=== PATIENT | female | born 1965 | race Caucasian/White ===

== ENCOUNTER → 2019-02-18 07:57 | Outpatient (CLI) | payer OTHER, SELFPAY ==
[2019-02-18 09:34] LABS: Alanine Aminotransferase 37 IU/L (9-52); Albumin Globulin Ratio 1.4 (1.0-2.8); Alkaline Phosphatase 73 U/L (38-126); Aspartate Aminotransferase 28 IU/L (14-36); Bilirubin Total 0.4 mg/dL (0.2-1.3); Bilirubin Unconjugated 0.2 mg/dL (0.0-1.1); Cholesterol 262 mg/dL (140-199); Globulin 2.9 g/dL (1.7-4.1); HDL Cholesterol 40 mg/dL (40-60); HEMOLYSIS < 15 (0-50); Total Protein 6.9 g/dL (6.3-8.2); Triglycerides 436 mg/dL (35-150)
[2019-02-18 09:49] LABS: Vitamin D 25 Hydroxy (D3) 34.5 ng/mL (30.0-100.0)
== END ==
PROVIDERS: PCP Student in an Organized Health Care Education/Training Program; Visit Provider Student in an Organized Health Care Education/Training Program
DX: E55.9 Vitamin D deficiency, unspecified (principal); Z13.220 Encounter for screening for lipoid disorders; Z91.89 Other specified personal risk factors, not elsewhere classified
CPT/HCPCS: 36415; 80061; 80076; 82306

== ENCOUNTER → 2019-07-11 10:14 | Outpatient (CLI) | payer OTHER, SELFPAY ==
[2019-07-13 14:48] LABS: Mitogen-NIL > 10.00 IU/mL; QuantiFERON TB NEGATIVE (Negative); TB1-NIL < 0.01 IU/mL; TB2-NIL < 0.01 IU/mL
== END ==
PROVIDERS: PCP Student in an Organized Health Care Education/Training Program; Visit Provider Family Medicine
DX: Z11.1 Encounter for screening for respiratory tuberculosis (principal)
CPT/HCPCS: 36415; 86480

== ENCOUNTER 2020-08-06 13:13 | Emergency (ER) | payer OTHER, SELFPAY ==
[2020-08-06 13:29] VITALS: BP 144/75; PULSE 63; RESP 14; TEMP 36.7; O2SAT 100; BMI 25.4
[2020-08-06 14:00] LABS: Prothrombin Time 11.9 SECONDS (10.1-12.7)
[2020-08-06 14:03] LABS: Add Manual Diff / Slide Review NO; Basophils Absolute Auto 0 /uL (0-100); Basophils Percent Auto 0.6 % (0-2); Eosinophils Absolute Auto 100 /uL (0-450); Eosinophils Percent Auto 1.5 % (2-4); Hematocrit 39.1 % (36-46); Hemoglobin 13.1 g/dL (12.0-16.0); Lymphocytes Absolute Auto 2100 /uL (1100-4500); Lymphocytes Percent Auto 40.6 % (25-40); Mean Corpuscular HGB Conc 33.4 % (30-36); Mean Corpuscular Hemoglobin 29.2 PG (26-34); Mean Corpuscular Volume 87.2 fL (80-100); Monocytes Absolute Auto 300 /uL (0-900); Monocytes Percent Auto 6.3 % (3-14); Neutrophils Absolute Auto 2700 /uL (1500-7000); PTT Partial Thromboplastin Tim 36 SECONDS (26.4-36.2); Platelet Count 248 X10^3/uL (150-400); Red Blood Cell Count 4.48 X10^6/uL (4.0-5.2); Red Cell Distribution Width 14.3 % (11.6-14.8); White Blood Cell Count 5.2 X10^3/uL (4.5-11.0)
[2020-08-06 14:09] LABS: Alanine Aminotransferase 20 IU/L (<35); Albumin 4.2 g/dL (3.5-5.0); Albumin Globulin Ratio 1.4 (1.0-2.8); Alkaline Phosphatase 56 U/L (38-126); Aspartate Aminotransferase 26 IU/L (14-36); BUN Creatinine Ratio 25.4 (6-22); Bilirubin Total 0.4 mg/dL (0.2-1.3); Blood Urea Nitrogen 15 mg/dL (7-17); Carbon Dioxide 30 mmol/L (22-32); Chloride 104 mmol/L (98-107); Estimated Glomerular Filt Rate > 60.0 mL/min (>60); Globulin 3.1 g/dL (1.7-4.1); Glucose 105 mg/dL (70-100); HEMOLYSIS < 15 (0-50); Lipase 130 U/L (23-300); Potassium 3.7 mmol/L (3.4-5.1); Sodium 138 mmol/L (137-145); Total Protein 7.3 g/dL (6.3-8.2)
[2020-08-06 17:37] VITALS: BP 161/82; PULSE 55; RESP 16; O2SAT 100
[2020-08-06 18:01] LABS: Bacteria Urine None Seen; RBC Urine None Seen (0-5/HPF); WBC Urine None Seen (0-5/HPF)
[2020-08-06 18:25] LABS: Amorphous Sediment Urine 2+; Culture Indicated Urine Cult Not Indicated
--- NOTE | 2020-08-06 18:49 | ED_ITS ---
HPI - Abdominal Pain General Chief Complaint: Abdominal Pain Stated Complaint: left side sharp pains last night Time Seen by Provider: 08/06/20 17:23 Source: patient Mode of arrival: Ambulatory Limitations: no limitations History of Present Illness HPI narrative: 54-year-old female nonsmoker with history of hyperlipidemia presents with a chief complaint of some sharp left side pain off and on for the past few weeks. She states there is no obvious provocation or palliation of her symptoms and it seems to be in the same pinpoint spot on her left side and lower ribs. She states that when the episodes are present they last a few seconds and then are gone for undetermined amount of time. She denies associated symptoms such as chest pain or shortness of breath. She has had no nausea, vomiting or diarrhea though she has had some constipation. She denies any change in medications or diet. She denies any overuse or injuries. MD complaint: flank pain Onset (ago): week(s) Pain Consistency: intermittent and now resolved Location: L flank Severity: mild Quality: cramping and stabbing Relieving factors: nothing Exacerbating factors: nothing Associated symptoms: denies other symptoms Related Data Home Medications Medication Instructions Recorded Confirmed coenzyme [id number] 100 mg-100 cap PO cap 06/04/18 06/04/18 unit capsule Previous Rx's Medication Instructions Recorded aspirin 81 mg tablet,delayed 81 mg PO DAILY #30 tab 06/04/18 release lovastatin 20 mg tablet 20 mg PO QPM #30 tab 02/18/19 Allergies Allergy/AdvReac Type Severity Reaction Status Date / Time No Known Drug Allergies Allergy Verified 08/06/20 13:29 Review of Systems Constitutional Constitutional: Denies chills, Denies fatigue, Denies fever(s), Denies frequent falls, Denies lethargy and Denies weakness Eyes Eyes: Denies change in vision, Denies eye discharge, Denies irritation and Denies loss of vision ENT Ears, Nose, Mouth, and Throat: Denies change in voice, Denies dizziness, Denies neck pain, Denies sore throat and Denies throat swelling Cardiovascular Cardiovascular: Denies chest pain, Denies irregular heart rhythm, Denies lightheadedness, Denies palpitations, Denies dyspnea, Denies dyspnea on exertion and Denies orthopnea Respiratory Respiratory: Denies cough, Denies dyspnea, Denies dyspnea on exertion and Denies wheezing Gastrointestinal Gastrointestinal: Denies abdominal pain, Denies change in bowel habits, Reports constipation, Denies diarrhea, Denies nausea and Denies vomiting Musculoskeletal Musculoskeletal: Denies neck pain and Denies numbness Integumentary/Breasts Skin/Breast: Denies pruritus, Denies erythema, Denies rash and Denies wounds Neurologic Neurologic: Denies behavioral changes, Denies confusion, Denies dizziness, Denies frequent falls, Denies loss of vision, Denies numbness and Denies weakness Psychiatric Psychiatric: Denies anxiety, Denies behavioral changes, Denies confusion, Denies depression, Denies homicidal ideation and Denies suicidal ideation Endocrine Endocrine: Denies fatigue, Denies flushing and Denies palpitations Hematologic/Lymphatic Hematologic/Lymphatic: Denies easy bruising Allergic/Immunologic Allergic/Immunologic: Denies urticaria, Denies throat swelling and Denies wheezing Patient History Surgical History (Updated 07/05/18 @ 14:37 by Kecia Avilez) Anesthesia History of section (2001) History of section (2003) Family History (Updated 07/05/18 @ 14:35 by eKcia Avilez) Mother Heart attack Stroke Brother S/P CABG (coronary artery bypass graft) Heart disease Social History Smoking Status: Never smoker alcohol intake: never substance use type: does not use Smoking Status: Never smoker alcohol intake frequency: holidays/special occasions only Substance Use Type: does not use Exam Narrative Exam Narrative: GENERAL: [54] year old patient appears stated age. Well- nourished, well-developed patient, in mild distress. HEAD: Atraumatic. Normocephalic. EYES: Pupils equal round and reactive. Extraocular motions intact. No scleral icterus. No injection or drainage. ENT: Nose without bleeding, purulent drainage. Throat without erythema, tonsi llar hypertrophy or exudate. Airway patent. NECK: Trachea midline. Non tender CARDIOVASCULAR: Regular rate and rhythm without murmurs, gallops, or rubs. RESPIRATORY: Clear to auscultation. Breath sounds equal bilaterally. No wheezes, rales, or rhonchi. GASTROINTESTINAL: Abdomen soft, non-tender, nondistended. EXTREMITIES: No edema or joint tenderness. BACK: Nontender without deformity or crepitance. No flank tenderness. NEURO: AOx3. SKIN: No rash or erythema of visible areas Initial Vital Signs Initial Vital Signs: Vital Signs Temperature 98.0 F 08/06/20 13:29 Pulse Rate 63 08/06/20 13:29 Respiratory Rate 14 08/06/20 13:29 Blood Pressure 144/75 H 08/06/20 13:29 Pulse Oximetry 100 08/06/20 13:29 Course Orders Ordered: ED Orders 08/06/20 17:30 Urine Microscopic Stat Vital Signs Vital signs: Vital Signs - 8 hr 08/06/20 17:37 08/06/20 19:06 08/06/20 19:10 Pulse Rate 55 L 68 68 Respiratory Rate 16 14 14 Blood Pressure 161/82 H 182/79 H 182/79 H Pulse Oximetry 100 98 98 MDM - Abdominal Pain Lab Data Result diagrams: 08/06/20 13:41 08/06/20 13:41 Labs: Lab Results 08/06/20 08/06/20 08/06/20 Range/Units 13:41 13:41 13:41 WBC 5.2 (4.5-11.0) X10^3/uL RBC 4.48 (4.0-5.2) X10^6/uL Hgb 13.1 (12.0-16.0) g/dL Hct 39.1 (36-46) % MCV 87.2 (80-100) fL MCH 29.2 (26-34) PG MCHC 33.4 (30-36) % RDW 14.3 (11.6-14.8) % Plt Count 248 (150-400) X10^3/uL Neut % (Auto) 51.0 (50-75) % Lymph % (Auto) 40.6 H (25-40) % [place] % (Auto) 6.3 (3-14) % Eos % (Auto) 1.5 L (2-4) % Baso % (Auto) 0.6 (0-2) % Neut # (Auto) 2700 (4176-5494) /uL Lymph # (Auto) 2100 (5240-0723) /uL [place] # (Auto) 300 (0-900) /uL Eos # (Auto) 100 (0-450) /uL Baso # (Auto) 0 (0-100) /uL PT 11.9 (10.1-12.7) SECONDS INR 1.0 (0.9-1.3) APTT 36 (26.4-36.2) SECONDS Sodium 138 (137-145) mmol/L Potassium 3.7 (3.4-5.1) mmol/L Chloride 104 (98-107) mmol/L Carbon Dioxide 30 (22-32) mmol/L BUN 15 (7-17) mg/dL Creatinine 0.59 (0.52-1.04) mg/dL Estimated GFR > 60.0 (>60) mL/min BUN/Creatinine Ratio 25.4 H (6-22) Glucose 105 H (70-100) mg/dL Calcium 9.0 (8.4-10.2) mg/dL Total Bilirubin 0.4 (0.2-1.3) mg/dL AST 26 (14-36) IU/L ALT 20 (<35) IU/L Alkaline Phosphatase 56 (38-126) U/L Total Protein 7.3 (6.3-8.2) g/dL Albumin 4.2 (3.5-5.0) g/dL Globulin 3.1 (1.7-4.1) g/dL Albumin/Globulin Ratio 1.4 (1.0-2.8) Lipase 130 (23-300) U/L Urine RBC (0-5/HPF) Urine WBC (0-5/HPF) Amorphous Sediment Urine Bacteria (None) Ur Culture Indicated? 08/06/20 Range/Units 17:30 WBC (4.5-11.0) X10^3/uL RBC (4.0-5.2) X10^6/uL Hgb (12.0-16.0) g/dL Hct (36-46) % MCV (80-100) fL MCH (26-34) PG MCHC (30-36) % RDW (11.6-14.8) % Plt Count (150-400) X10^3/uL Neut % (Auto) (50-75) % Lymph % (Auto) (25-40) % [place] % (Auto) (3-14) % Eos % (Auto) (2-4) % Baso % (Auto) (0-2) % Neut # (Auto) (4339-1461) /uL Lymph # (Auto) (7207-8765) /uL [place] # (Auto) (0-900) /uL Eos # (Auto) (0-450) /uL Baso # (Auto) (0-100) /uL PT (10.1-12.7) SECONDS INR (0.9-1.3) APTT (26.4-36.2) SECONDS Sodium (137-145) mmol/L Potassium (3.4-5.1) mmol/L Chloride (98-107) mmol/L Carbon Dioxide (22-32) mmol/L BUN (7-17) mg/dL Creatinine (0.52-1.04) mg/dL Estimated GFR (>60) mL/min BUN/Creatinine Ratio (6-22) Glucose (70-100) mg/dL Calcium (8.4-10.2) mg/dL Total Bilirubin (0.2-1.3) mg/dL AST (14-36) IU/L ALT (<35) IU/L Alkaline Phosphatase (38-126) U/L Total Protein (6.3-8.2) g/dL Albumin (3.5-5.0) g/dL Globulin (1.7-4.1) g/dL Albumin/Globulin Ratio (1.0-2.8) Lipase (23-300) U/L Urine RBC None seen (0-5/HPF) Urine WBC None seen (0-5/HPF) Amorphous Sediment 2+ Urine Bacteria None seen (None) Ur Culture Indicated? Cult not indicated Point of care testing: Urine Dip Bedside Urine Glucose Negative Bedside Urine Bilirubin - Negative Bedside Urine Ketone - Negative Urine Specific [place] 1.010 Bedside Urine Occult Blood +/- Bedside Urine pH 6 Bedside Urine Protein - Negative Bedside Urine Urobilinogen - Negative Bedside Urine Nitrite - Negative Bedside Urine Leukocytes - Negative Esterase MDM Narrative Medical decision making narrative: Multiple etiologies for patient's symptoms considered including: [Left flank pain secondary to kidney stone vs. pyelonephritis vs. colicky pain from constipation] Patient's symptoms improved over duration of stay with above-stated therapies. Strongly recommended Acute Abdominal Series but patient refused. Findings and discharge diagnosis discussed with patient/family followed by verbalization of understanding Return precautions discussed with patient/family whom verbalize understanding. Discharge Plan Departure Patient Disposition: Home Clinical Impression: Acute flank pain Instructions: DI for Flank Pain Activity Restrictions/Additional Instructions: *You have been diagnosed with [ left flank pain. Your labs, exam, and EKG are very reassuring. ] *What to do: *Continue to take medications as directed *Follow up with your primary care provider in 2-3 days, call for an appointment. Let them know you were seen in the Emergency Department and that we ask that you be seen in follow up *Return to ER if you should have any new, worsening or concerning symptoms, such as [more persistent pain, shortness of breath, fever greater than 101, nausea, vomiting or other bothersome symptoms] Prescriptions: No Action coenzyme [id number] E 100-100 mg-unit capsule PO RF: 0 aspirin 81 mg tablet,delayed release (DR/EC) 81 mg PO DAILY Qty: 30 RF: 11 lovastatin 20 mg tablet 20 mg PO QPM Qty: 30 RF: 2 Referrals: Kd Flynn MD [Primary Care Provider] -
[2020-08-06 19:06] VITALS: BP 182/79; PULSE 68; RESP 14; O2SAT 98
[2020-08-06 19:10] VITALS: BP 182/79; PULSE 68; RESP 14; O2SAT 98
== END 2020-08-06 19:12 | disposition home or self-care (01) ==
PROVIDERS: Emergency Medicine; Emergency Provider Emergency Medicine; PCP Student in an Organized Health Care Education/Training Program
DX: R10.9 Unspecified abdominal pain (principal); E78.5 Hyperlipidemia, unspecified
CPT/HCPCS: 36415; 80053; 81003; 81015; 83690; 85025; 85610; 85730; 93005; 99283; 99284

== ENCOUNTER 2020-12-02 20:32 | Emergency (ER) | payer OTHER, SELFPAY ==
[2020-12-02 20:38] VITALS: BP 178/85; PULSE 79; RESP 21; TEMP 36.5; O2SAT 97; BMI 26.2
[2020-12-02] MEDS: ONDANSETRON 4 MG/2 ML INJ IV (20:44)
[2020-12-02] MEDS: SODIUM CHLORIDE 0.9% 1,000 ML 1000 ML IV (20:45)
--- NOTE | 2020-12-02 20:53 | ED.CHESTPAIN ---
HPI - Chest Pain General Chief Complaint: Chest Pain Stated Complaint: chest pain Time Seen by Provider: 12/02/20 20:40 Source: patient Mode of arrival: Wheelchair Limitations: no limitations History of Present Illness HPI narrative: 55-year-old woman with history of hypertension hyperlipidemia presents after awaking this morning with severe dizziness. She had some retching vomited a few times in the morning was feeling better mid day went to work and then went to have a scheduled massaged and when she laid supine had recurrent episodes of significant vertigo with severe vomiting and nausea. She states that she had a similar episode around 2014, does not describe it as quite so severe. She has not had any recent falls or head trauma, complains of no fever, cough, chills, headaches, diarrhea, abdominal pain, weakness or numbness in her extremities. She does describe hyperventilating with the vomiting episodes this afternoon and experiencing some carpal pedal spasm Related Data Previous Rx's Medication Instructions Recorded lorazepam 0.5 mg PO TID PRN #14 tab 12/02/20 meclizine 25 mg PO TID PRN #30 tab 12/02/20 ondansetron 4 mg PO Q8H PRN #14 tab 12/02/20 Allergies Allergy/AdvReac Type Severity Reaction Status Date / Time No Known Drug Allergies Allergy Verified 12/02/20 20:44 Review of Systems Review of Systems Narrative: Remainder of review of systems including constitutional, ENT, cardiovascular, respiratory, GI, , musculoskeletal, skin, neurologic and psychiatric systems reviewed and are unremarkable except as noted in HPI. Patient History Social History Smoking Status: Unknown if ever smoked Smoking Status: Unknown if ever smoked alcohol intake frequency: holidays/special occasions only Substance Use Type: does not use Exam Narrative Exam Narrative: General: Healthy appearing, retching violently Able to give a complete and coherent history. HEENT: Moist mucous membranes, normal sclera with reactive pupils, Neck: No JVD, supple Respiratory: Lungs are clear to auscultation, no wheezing no rales no rhonchi. Full and symmetrical air movement Cardiac: Regular rate and rhythm no murmurs no bruits Abdomen: Soft, nontender, good bowel tones, no flank pain Skin: Warm and dry, no rashes Neurologic: Grossly neurologically intact with no obvious asymmetries. With evoked maneuvers she does have nystagmus when turning her head rapidly to the right with recurrent severe vertigo and dizziness. Extremities: No trauma, well perfused Psych: Cooperative, appropriate insight and affect Initial Vital Signs Initial Vital Signs: Vital Signs Temperature 97.7 F 12/02/20 20:38 Pulse Rate 79 12/02/20 20:38 Respiratory Rate 21 12/02/20 20:38 Blood Pressure 178/85 H 12/02/20 20:38 Pulse Oximetry 97 12/02/20 20:38 Course Orders Ordered: ED Orders 12/02/20 20:44 Complete Blood Count AUTO DIFF Stat Comprehensive Metabolic Panel Stat Troponin I Stat 12/02/20 20:46 EKG-12 Lead Stat Discontinued Medications Sodium Chloride (Normal Saline 0.9%) 1,000 mls @ 1,000 mls/hr IV BOLUS ONE Stop: 12/02/20 21:41 Last Infusion: 12/02/20 21:53 Dose: 0 mls/hr Documented by: Admin: 12/02/20 20:45 Dose: 1,000 mls/hr Documented by: JUAN RAMON Lorazepam (Lorazepam 2 Mg/Ml Inj) 1 mg IV NOW ONE Stop: 12/02/20 21:04 Last Admin: 12/02/20 21:11 Dose: 1 mg Documented by: LUIS Meclizine HCl (Meclizine Hcl 12.5 Mg Tablet) 25 mg PO NOW ONE Stop: 12/02/20 21:04 Last Admin: 12/02/20 21:11 Dose: 25 mg Documented by: LUIS Ondansetron HCl (Ondansetron 4 Mg/2 Ml Inj) 4 mg IV NOW ONE Stop: 12/02/20 20:42 Last Admin: 12/02/20 20:44 Dose: 4 mg Documented by: JUAN RAMON Vital Signs Vital signs: Vital Signs - 8 hr 12/02/20 20:38 12/02/20 21:32 12/02/20 21:56 Temperature 97.7 F Pulse Rate 79 74 76 Respiratory Rate 21 18 16 Blood Pressure 178/85 H 140/63 132/63 Pulse Oximetry 97 95 97 12/02/20 22:00 12/02/20 22:51 12/02/20 23:24 Temperature 98.5 F Pulse Rate 77 79 79 Respiratory Rate 19 15 15 Blood Pressure 128/65 129/63 117/64 Pulse Oximetry 95 96 96 MDM - Chest Pain Medical Records Data Attestation: I reviewed the patient's medical records. Lab Data Attestation: I reviewed the patient's lab results. Result diagrams: 12/02/20 20:44 12/02/20 20:44 Labs: Lab Results 12/02/20 12/02/20 Range/Units 20:44 20:44 WBC 9.8 (4.5-11.0) X10^3/uL RBC 4.69 (4.0-5.2) X10^6/uL Hgb 13.5 (12.0-16.0) g/dL Hct 40.6 (36-46) % MCV 86.6 (80-100) fL MCH 28.7 (26-34) PG MCHC 33.2 (30-36) % RDW 14.5 (11.6-14.8) % Plt Count 257 (150-400) X10^3/uL Neut % (Auto) 61.5 (50-75) % Lymph % (Auto) 32.0 (25-40) % [place] % (Auto) 4.2 (3-14) % Eos % (Auto) 0.6 L (2-4) % Baso % (Auto) 1.7 (0-2) % Neut # (Auto) 6000 (4688-1473) /uL Lymph # (Auto) 3100 (5745-4220) /uL [place] # (Auto) 400 (0-900) /uL Eos # (Auto) 100 (0-450) /uL Baso # (Auto) 200 H (0-100) /uL Sodium 138 (137-145) mmol/L Potassium 3.2 L (3.4-5.1) mmol/L Chloride 106 (98-107) mmol/L Carbon Dioxide 19 L (22-32) mmol/L BUN 12 (7-17) mg/dL Creatinine 0.59 (0.52-1.04) mg/dL Estimated GFR > 60.0 (>60) mL/min BUN/Creatinine Ratio 20.3 (6-22) Glucose 131 H (70-100) mg/dL Calcium 9.6 (8.4-10.2) mg/dL Total Bilirubin 0.5 (0.2-1.3) mg/dL AST 30 (14-36) IU/L ALT 24 (<35) IU/L Alkaline Phosphatase 73 (38-126) U/L Troponin I < 0.012 (0.01-0.034) ng/mL Total Protein 7.8 (6.3-8.2) g/dL Albumin 4.5 (3.5-5.0) g/dL Globulin 3.3 (1.7-4.1) g/dL Albumin/Globulin Ratio 1.4 (1.0-2.8) ECG Data Attestation: I personally reviewed and interpreted this ECG as follows: Interpretation: Sinus rhythm at a rate of 69 Incomplete right bundle-branch block No acute ST T wave changes MDM Narrative Medical decision making narrative: 55-year-old woman with benign positional vertigo starting this morning persistent vomiting with mild hypokalemia secondary to that. With Zofran, meclizine, Ativan and fluids she is feeling significantly improved. No evidence of stroke, sepsis, acute coronary syndrome. At this time she is safe for home discharge Discharge Plan Departure Patient Disposition: Home Clinical Impression: Benign paroxysmal positional vertigo Qualifiers: Laterality: right Qualified Code(s): H81.11 - Benign paroxysmal vertigo, right ear Instructions: DI for Benign Paroxysmal Positional Vertigo Activity Restrictions/Additional Instructions: Thank you for coming in today I am glad you are feeling better. Your blood work today was very reassuring with no signs of acute infection, heart attack or stroke. Your given a combination of 3 medications to help with her symptoms today. I am going to give you prescriptions for each of these and you can decide which seems the most helpful with your symptoms. It is okay to combined them. Ondansetron/Zofran, this is a specific anti nausea medicine Meclizine, this is for vertigo/spinning feeling. Can give you a slight dry mouth and cause some mild constipation. Ativan/lorazepam. This is actually an anti anxiety medication however it can be helpful in controlling nausea. You may find that this is helpful in getting to sleep over the next couple of nights if your still feeling dizzy when you laid down. If you find that you are getting worse, please feel free to return to the emergency department Prescriptions: New ondansetron 4 mg tablet,disintegrating 4 mg PO Q8H PRN (Reason: nausea and vomiting) Qty: 14 RF: 0 meclizine 25 mg tablet 25 mg PO TID PRN (Reason: dizziness) Qty: 30 RF: 0 lorazepam 0.5 mg tablet 0.5 mg PO TID PRN (Reason: vertigo, nausea) Qty: 14 RF: 0
[2020-12-02] MEDS: MECLIZINE HCL 12.5 MG TABLET 25 MG PO (21:11)
[2020-12-02] MEDS: LORazepam 2 MG/ML INJ 1 MG IV (21:11)
[2020-12-02 21:12] LABS: Add Manual Diff / Slide Review NO; Basophils Absolute Auto 200 /uL (0-100); Basophils Percent Auto 1.7 % (0-2); Eosinophils Absolute Auto 100 /uL (0-450); Eosinophils Percent Auto 0.6 % (2-4); Hematocrit 40.6 % (36-46); Hemoglobin 13.5 g/dL (12.0-16.0); Lymphocytes Absolute Auto 3100 /uL (1100-4500); Mean Corpuscular HGB Conc 33.2 % (30-36); Mean Corpuscular Hemoglobin 28.7 PG (26-34); Mean Corpuscular Volume 86.6 fL (80-100); Monocytes Absolute Auto 400 /uL (0-900); Monocytes Percent Auto 4.2 % (3-14); Neutrophils Absolute Auto 6000 /uL (1500-7000); Neutrophils Percent Auto 61.5 % (50-75); Platelet Count 257 X10^3/uL (150-400); Red Blood Cell Count 4.69 X10^6/uL (4.0-5.2); Red Cell Distribution Width 14.5 % (11.6-14.8); White Blood Cell Count 9.8 X10^3/uL (4.5-11.0)
[2020-12-02 21:17] LABS: Alanine Aminotransferase 24 IU/L (<35); Albumin 4.5 g/dL (3.5-5.0); Albumin Globulin Ratio 1.4 (1.0-2.8); Alkaline Phosphatase 73 U/L (38-126); Aspartate Aminotransferase 30 IU/L (14-36); BUN Creatinine Ratio 20.3 (6-22); Bilirubin Total 0.5 mg/dL (0.2-1.3); Blood Urea Nitrogen 12 mg/dL (7-17); Calcium 9.6 mg/dL (8.4-10.2); Carbon Dioxide 19 mmol/L (22-32); Chloride 106 mmol/L (98-107); Estimated Glomerular Filt Rate > 60.0 mL/min (>60); Globulin 3.3 g/dL (1.7-4.1); Glucose 131 mg/dL (70-100); HEMOLYSIS 19 (0-50); Potassium 3.2 mmol/L (3.4-5.1); Sodium 138 mmol/L (137-145); Total Protein 7.8 g/dL (6.3-8.2)
[2020-12-02 21:28] LABS: Troponin I < 0.012 ng/mL (0.01-0.034)
[2020-12-02 21:32] VITALS: BP 140/63; PULSE 74; RESP 18; O2SAT 95
[2020-12-02 21:56] VITALS: BP 132/63; PULSE 76; RESP 16; O2SAT 97
[2020-12-02 22:00] VITALS: BP 128/65; PULSE 77; RESP 19; O2SAT 95
--- NOTE | 2020-12-02 22:04 | PC.NURSE ---
Pt reports feeling better, no vomiting after medication, vertigo resolved, pt is drowsy. at bedside.
[2020-12-02 22:51] VITALS: BP 129/63; PULSE 79; RESP 15; O2SAT 96
[2020-12-02 23:24] VITALS: BP 117/64; PULSE 79; RESP 15; TEMP 36.9; O2SAT 96
== END 2020-12-02 23:25 | disposition home or self-care (01) ==
PROVIDERS: Emergency Provider Emergency Medicine
DX: H81.11 Benign paroxysmal vertigo, right ear (principal); R11.2 Nausea with vomiting, unspecified; E87.6 Hypokalemia
CPT/HCPCS: 36415; 80053; 84484; 85025; 93005; 96361; 96374; 96375; 99284; J2060; J2405

== ENCOUNTER → 2023-04-18 14:00 | Outpatient (CLI) | payer OTHER, SELFPAY ==
--- NOTE | 2023-04-18 | DI.MG.S_ITS ---
BILATERAL DIGITAL SCREENING MAMMOGRAM 3D/2D WITH CAD: 04/18/2023 CLINICAL: Routine screening. Baseline exam. No prior exams were available for comparison. Both breasts are heterogeneously dense, which may obscure small masses (category c / 51-75% glandular tissue). Current study was also evaluated with a Computer Aided Detection (CAD) system. No significant masses, calcifications, or other findings are seen in either breast. IMPRESSION: NEGATIVE There is no mammographic evidence of malignancy. A 1 year screening mammogram is recommended. Based on the Tyrer Cuzick model (a risk assessment model) the patient's lifetime risk is 9.1% and her 10 year risk is 3.3%. According to the ACR, ACS, and NCCN guidelines, an annual breast MRI exam along with mammogram is recommended if the patient's lifetime risk is 20% or greater. This exam was interpreted at Station ID: [id number]. NOTE: For mammograms, a report in lay terms will be sent to the patient. Approximately 15% of breast malignancies will not be visualized mammographically. In the management of a palpable breast mass, a negative mammogram must not discourage biopsy of a clinically suspicious lesion. Electronically Signed By: Eusebio [email or web address]/[email or web address]:04/18/2023 21:00:53 letter sent: Normal Exam ACR BI-RADS Category 1: Negative [id number]
--- NOTE | 2023-04-18 | DI.MRI.S_ITS ---
PROCEDURE: MR HEAD/BRAIN WO/W CON INDICATIONS: TEMPORAL LOBE MASS,LEFT/THYROID CYST/BASELINE TECHNIQUE: Noncontrast axial T1 spin echo, axial T2 fast spin echo, sagittal and axial FLAIR, coronal T2 fast spin echo, axial gradient echo, axial diffusion and ADC through the brain. After the administration of contrast, axial and coronal and sagittal 3D VIBE or T1 spin echo with fat saturation through the brain. COMPARISON: No prior studies are available for review at the time of this dictation. At. FINDINGS: Image quality: Excellent. CSF Spaces: Basal cisterns are patent. No extra-axial fluid collections. Ventricles are normal in size and shape. Brain: There is an extra-axial mass seen, with relatively uniform intense enhancement along the lateral aspect of the left frontal lobe that measures 3.4 x 2.8 cm in greatest axial dimension, with a craniocaudal extent of 2.9 cm. This lesion demonstrates relatively low T2 weighted signal. No significant edema can be seen involving the underlying left frontal lobe. There are a few foci of T2 weighted hyperintensity seen within the periventricular deep white matter. No midline shift. No intracranial bleeds. The brainstem appears normal. Diffusion-weighted images demonstrate no acute ischemic insults. No chronic ischemic insults. Normal intravascular flow voids are present. Skull and face: Calvarial marrow is normal in signal. Orbits appear normal. Sinuses: Sinuses and mastoids appear clear. IMPRESSION: 2.9 cm extra-axial intensely enhancing mass seen along the lateral aspect of the left frontal lobe. This represents a meningioma until proven otherwise. A few foci of T2 weighted hyperintensity can be seen within the white matter. Given the patient's age, these are most likely related to early chronic small vessel ischemic change. However, there are nonspecific and please consider mild multiple sclerosis. Dictated by: Juan Antonio Stein M.D. on 04/18/2023 at 13:53 Approved by: Juan Antonio Stein M.D. on 04/18/2023 at 13:55
--- NOTE | 2023-04-18 | DI.US.S_ITS ---
PROCEDURE: US THYROID INDICATIONS: LEFT THYROID CYST SEEN INCIDENTALLY ON MRI TECHNIQUE: Real-time scanning was performed of the thyroid gland, with image documentation. COMPARISON: None. FINDINGS: Right: Thyroid lobe measures 5.5 x 1.8 x 1.9 cm, and is homogeneous in echotexture. Left: Thyroid lobe measures 7 x 3.9 x 3.2 cm, and is homogenous in echotexture. Isthmus: 2 mm thick. Nodule number: 1 Location: Right inferior pole Size: 0.9 x 0.5 centimeter cm. Composition: Colloid cyst ACR TI-RADS category: Benign Nodule number: 2 Location: Left midpole Size: 4.5 x 3.7 x 2.6 centimeter cm. Composition: Colloid cyst ACR TI-RADS category: Benign IMPRESSION: Benign bilateral colloid cysts. No further follow-up. ACR TI-RADS definitions and recommendations: TI-RADS 1 (benign): 0 points. FNA not needed. TI-RADS 2 (not suspicious): 2 points. FNA not needed. TI-RADS 3 (mildly suspicious): 3 points. * FNA if 2.5 cm or larger, follow up if 1.5 cm or larger (at 1, 3, and 5 years). TI-RADS 4 (moderately suspicious): 4-6 points. * FNA if 1.5 cm or larger, follow up if 1 cm or larger (at 1, 2, 3, and 5 years). TI-RADS 5 (highly suspicious): 7 points or more. * FNA if 1 cm or larger, follow up if 0.5 cm or larger (every year for 5 years). Dictated by: Tha Miles M.D. on 04/18/2023 at 17:18 Approved by: Tha Miles M.D. on 04/18/2023 at 17:19
== END ==
PROVIDERS: PCP Student in an Organized Health Care Education/Training Program; Referring Provider Internal Medicine; Visit Provider Internal Medicine
DX: Z12.31 Encounter for screening mammogram for malignant neoplasm of breast (principal); D32.0 Benign neoplasm of cerebral meninges; E04.2 Nontoxic multinodular goiter
CPT/HCPCS: 70553; 76536; 77063; 77067